=== PATIENT | female | born 1945 | race Hispanic/Latino ===

== ENCOUNTER → 2018-10-05 | Outpatient (CLI) | payer OTHER, MEDICARE | END | disposition home or self-care (01) | LOC: SHCH 09:00 | PROVIDERS: ATTEND Internal Medicine Cardiovascular Disease | DX: I35.1 Nonrheumatic aortic (valve) insufficiency (principal); I48.0 Paroxysmal atrial fibrillation | CPT/HCPCS: 93306 ==

== ENCOUNTER → 2018-10-09 | Outpatient (CLI) | payer OTHER, MEDICARE ==
[~2018-10-09] MED LIST: REGADENOSON 0.4 MG/5 ML PF SYG IVP SCH
== END | disposition home or self-care (01) ==
LOC: SHCH 07:54
PROVIDERS: ATTEND Internal Medicine Cardiovascular Disease
DX: Z01.818 Encounter for other preprocedural examination (principal); I35.0 Nonrheumatic aortic (valve) stenosis; I48.0 Paroxysmal atrial fibrillation
CPT/HCPCS: 78452; 93017; 96374; A9500 ×2; J2785

== ENCOUNTER → 2020-06-25 | Outpatient (CLI) | payer OTHER, MEDICARE | END | disposition home or self-care (01) | LOC: SHCH 12:51 | PROVIDERS: ATTEND Internal Medicine Cardiovascular Disease | DX: R00.2 Palpitations (principal); R00.0 Tachycardia, unspecified | CPT/HCPCS: 93306; 93356 ==

== ENCOUNTER → 2021-01-11 | Outpatient (CLI) | payer OTHER, MEDICARE ==
[~2021-01-11] VITALS: Ht 162.6 cm; Wt 83.0 kg
== END | disposition home or self-care (01) ==
LOC: SHCH 09:43
PROVIDERS: ATTEND Internal Medicine Cardiovascular Disease
DX: I35.0 Nonrheumatic aortic (valve) stenosis (principal); R07.89 Other chest pain; Z79.899 Other long term (current) drug therapy
CPT/HCPCS: 78452; 93017; 96374; A9500 ×2; J2785

== ENCOUNTER 2021-09-09 20:25 | Emergency (ER) | payer OTHER, MEDICARE ==
[~2021-09-09] VITALS: Ht 165.1 cm; Wt 79.4 kg
[2021-09-09 21:38] LABS: BASOPHILS % (AUTO) 0.6 % (0.0-5.0); EOSINOPHILS % (AUTO) 5.8 % (0.0-8.0); HEMATOCRIT 35.3 % (36-48); LYMPHOCYTES % (AUTO) 20.8 % (21.0-51.0); MEAN CORPUSCULAR HEMOGLOBIN 27.5 pg (27.0-33.0); MEAN CORPUSCULAR HGB CONC 31.2 g/dL (32.0-36.0); MEAN CORPUSCULAR VOLUME 88.3 fL (79-99); MONOCYTES % (AUTO) 9.4 % (3.0-13.0); PLATELET COUNT (AUTO) 399 K/uL (130-400); RED CELL DISTRIBUTION WIDTH 14.8 % (11.0-15.5); WHITE BLOOD COUNT (AUTO) 9.8 K/uL (4.8-10.8)
[2021-09-09 21:50] LABS: CREATININE 1.1 mg/dL (0.5-1.5); POTASSIUM 3.9 mmol/L (3.5-5.1)
[2021-09-09 21:52] LABS: ALBUMIN 3.6 g/dL (3.5-5.0); BILIRUBIN,TOTAL 0.4 mg/dL (0.2-1.0); TOTAL PROTEIN, SERUM 8.1 g/dL (6.0-8.3)
[2021-09-09] MEDS ORDERED: FUROSEMIDE 40MG VIAL IV ONE (22:00)
[2021-09-09 22:01] LABS: B-TYPE NATRIURETIC PEPTIDE 334 pg/mL (0-100)
[2021-09-09 22:38] VITALS: BP 161/53
== END 2021-09-09 22:52 | disposition home or self-care (01) ==
LOC: EDH 20:25
DX: I27.20 Pulmonary hypertension, unspecified (principal); E87.70 Fluid overload, unspecified; E11.9 Type 2 diabetes mellitus without complications; I25.10 Atherosclerotic heart disease of native coronary artery without angina pectoris; M19.90 Unspecified osteoarthritis, unspecified site; Z88.0 Allergy status to penicillin
CPT/HCPCS: 36415; 71045; 80053; 83880; 84484; 85025; 93005; 96374; 99285; J1940

== ENCOUNTER → 2021-10-12 | Outpatient (CLI) | payer OTHER, MEDICARE | END | disposition home or self-care (01) | LOC: SHCH 10:45 | PROVIDERS: ATTEND Internal Medicine Cardiovascular Disease | DX: I87.2 Venous insufficiency (chronic) (peripheral) (principal); R60.9 Edema, unspecified | CPT/HCPCS: 93970 ==

== ENCOUNTER 2021-12-09 06:35 | Day surgery (SDC) | payer OTHER, MEDICARE ==
[2021-12-03 16:07] LABS: BASOPHILS % (AUTO) 0.6 % (0.0-5.0); EOSINOPHILS % (AUTO) 0.8 % (0.0-8.0); HEMATOCRIT 37.6 % (36-48); LYMPHOCYTES % (AUTO) 19.4 % (21.0-51.0); MEAN CORPUSCULAR HEMOGLOBIN 26.5 pg (27.0-33.0); MEAN CORPUSCULAR HGB CONC 30.9 g/dL (32.0-36.0); MONOCYTES % (AUTO) 21.9 % (3.0-13.0); NEUTROPHILS % (AUTO) 57.3 % (40.0-77.0); PLATELET COUNT (AUTO) 234 K/uL (130-400); RED BLOOD CELL COUNT(AUTO) 4.37 MIL/uL (4.00-5.50); WHITE BLOOD COUNT (AUTO) 4.9 K/uL (4.8-10.8)
[2021-12-03 16:09] LABS: APPEARANCE,URINE Clear (CLEAR); BILIRUBIN,URINE Negative (NEGATIVE); COLOR,URINE Yellow (YELLOW); GLUCOSE, URINE (UA) Negative (NEGATIVE); KETONES,URINE Negative (NEGATIVE); LEUKOCYTE ESTERASE ,URINE Trace (NEGATIVE); NITRATE,URINE Negative (NEGATIVE); OCCULT BLOOD,URINE Negative (NEGATIVE); PROTEIN,URINE Negative (NEGATIVE); UROBILINOGEN,URINE 0.2 mg/dL (0.2-1.0)
[2021-12-03 16:22] LABS: INR 1.1 (0.85-1.15); PROTHROMBIN TIME 11.9 SEC (9.6-11.6)
[2021-12-03 16:23] LABS: PARTIAL THROMBOPLASTIN TIME 33.1 SEC (26.3-35.5)
[2021-12-03 16:24] LABS: CREATININE 1.2 mg/dL (0.5-1.5); POTASSIUM 4.3 mmol/L (3.5-5.1)
[2021-12-03 16:26] LABS: B-TYPE NATRIURETIC PEPTIDE 319 pg/mL (0-100)
[2021-12-03 16:28] LABS: BACTERIA,URINE Few /HPF (None Seen); RBC,URINE 0-1 /HPF (0-1)
[2021-12-03 16:29] LABS: SQUAMOUS EPITHELIAL CELL,UR Few /HPF (0-2)
[2021-12-07 09:52] VITALS: BP 185/65
[~2021-12-09] VITALS: Ht 165.1 cm; Wt 80.2 kg
[2021-12-09] VITALS (16 sets, daily range): BP systolic 138–162; BP diastolic 46–62
[~2021-12-09 06:35] MED LIST changes: +0.9%NACL 1000ML 1,000 ML IV SCH; +APIX5TAB PO; +DESMOPRESSIN 40MCG INJ 24 MCG in 0.9%NACL 50ML 50 ML IJ SCH; +DULO60CA64 PO; +FURO20TA4 PO; +HYDR-4153 PO; +METF-444 PO; +PYRI60TA PO; -REGADENOSON 0.4 MG/5 ML PF SYG IVP SCH; +SOTA80TA PO; +VALS320T16 PO
[2021-12-09] MEDS ORDERED: DESMOPRESSIN 40MCG INJ 24 MCG in 0.9%NACL 50ML 50 ML IJ SCH (07:30)
[2021-12-09] MEDS ORDERED: HEPARIN 10,000 UNIT/10ML (1,000 UNIT/ML) VIAL ONE (07:38)
[2021-12-09] MEDS ORDERED: IOHEXOL-350 50ML VIAL IV ONE (07:39)
[2021-12-09] MEDS ORDERED: NITROGLYCERIN 50MG VIAL ONE (07:39)
[2021-12-09] MEDS ORDERED: LIDOCAINE HCL 400MG/20ML VIAL ONE (07:39)
[2021-12-09] MEDS ORDERED: IOHEXOL-350 75 ML VIAL IV ONE (07:39)
[2021-12-09] MEDS ORDERED: 0.9%NACL 1000ML 1,000 ML IV ONE (08:13)
[2021-12-09] MEDS ORDERED: DEXTROSE 50%-WATER 50 ML DISP.SYRIN IV PRN (11:00)
[2021-12-09] MEDS ORDERED: GLUCAGON 1MG KIT 1 MG ML IM PRN (11:00)
[2021-12-09] MEDS ORDERED: INSULIN HUMULIN R 100 UNIT/ML 3ML SQ SCH (11:30)
[2021-12-09 12:23] LABS: ABG BASE EXCESS 0.1 mmol/L (-2.0-3.0); ABG HCO3 25.2 mmol/L (21.0-28.0); ABG OXYGEN SATURATION 95.6 % (95.0-99.0); ABG PCO2 43 mmHg (32-45)
== END 2021-12-09 18:12 | disposition home or self-care (01) ==
LOC: DAH 06:35
PROVIDERS: ATTEND Internal Medicine Cardiovascular Disease
DX: I25.119 Atherosclerotic heart disease of native coronary artery with unspecified angina pectoris (principal); I34.0 Nonrheumatic mitral (valve) insufficiency; I27.23 Pulmonary hypertension due to lung diseases and hypoxia; I11.0 Hypertensive heart disease with heart failure; I50.22 Chronic systolic (congestive) heart failure; I48.0 Paroxysmal atrial fibrillation; E03.9 Hypothyroidism, unspecified; J45.909 Unspecified asthma, uncomplicated; E78.5 Hyperlipidemia, unspecified; E11.9 Type 2 diabetes mellitus without complications; Z79.899 Other long term (current) drug therapy; Z79.84 Long term (current) use of oral hypoglycemic drugs; Z79.890 Hormone replacement therapy; Z79.01 Long term (current) use of anticoagulants; Z90.49 Acquired absence of other specified parts of digestive tract; Z90.710 Acquired absence of both cervix and uterus; Z98.890 Other specified postprocedural states; Z80.9 Family history of malignant neoplasm, unspecified; Z82.3 Family history of stroke; Z83.3 Family history of diabetes mellitus; Z82.49 Family history of ischemic heart disease and other diseases of the circulatory system; Z88.0 Allergy status to penicillin
CPT/HCPCS: 36415; 36600; 71045; 80048; 81001; 82803; 82948 ×2; 83880; 85025; 85610; 85730; 93005; 93460; A4215; A4216; A4221; A4222; A4223 ×3; A4606; A4663; C1769; C1894 ×3; J1644 ×2; J2597; J3490; J7030; Q9967 ×2; 94760

== ENCOUNTER 2021-12-15 13:57 | Observation (INO) | payer OTHER, MEDICARE ==
[~2021-12-15] VITALS: Ht 165.1 cm; Wt 77.2 kg
[~2021-12-15 13:57] MED LIST changes: -CETI10TA57 PO; -HYDR25TA PO; -NAPR500T6 PO
[2021-12-15 14:52] LABS: BASOPHILS % (AUTO) 0.1 % (0.0-5.0); EOSINOPHILS % (AUTO) 2.6 % (0.0-8.0); HEMATOCRIT 32.3 % (36-48); LYMPHOCYTES % (AUTO) 26.8 % (21.0-51.0); MEAN CORPUSCULAR HEMOGLOBIN 26.8 pg (27.0-33.0); MEAN CORPUSCULAR HGB CONC 32.2 g/dL (32.0-36.0); MEAN CORPUSCULAR VOLUME 83.2 fL (79-99); MONOCYTES % (AUTO) 13.2 % (3.0-13.0); NEUTROPHILS % (AUTO) 56.9 % (40.0-77.0); PLATELET COUNT (AUTO) 302 K/uL (130-400); RED BLOOD CELL COUNT(AUTO) 3.88 MIL/uL (4.00-5.50); RED CELL DISTRIBUTION WIDTH 15.1 % (11.0-15.5)
[2021-12-15] MEDS ORDERED: HYDR25TA PO (14:59)
[2021-12-15] MEDS ORDERED: METF-444 PO (14:59)
[2021-12-15] MEDS ORDERED: PYRI60TA PO (14:59)
[2021-12-15] MEDS ORDERED: NAPR500T6 PO (14:59)
[2021-12-15] MEDS ORDERED: CETI10TA57 PO (14:59)
[2021-12-15 15:05] LABS: CREATININE 1.1 mg/dL (0.5-1.5)
[2021-12-15 15:07] LABS: INR 1.04 (0.85-1.15); PROTHROMBIN TIME 11.3 SEC (9.6-11.6)
[2021-12-15 15:09] LABS: PARTIAL THROMBOPLASTIN TIME 30.2 SEC (26.3-35.5)
[2021-12-15 15:10] LABS: ALBUMIN 3.2 g/dL (3.5-5.0); BILIRUBIN,TOTAL 0.7 mg/dL (0.2-1.0); TOTAL PROTEIN, SERUM 7.2 g/dL (6.0-8.3)
[2021-12-15] MEDS ORDERED: MORPHINE 2 MG SYG IVP ONE (16:30)
[2021-12-15] MEDS ORDERED: ONDANSETRON 4MG INJ IVP ONE (16:30)
[2021-12-15 16:49] LABS: APPEARANCE,URINE Clear (CLEAR); BILIRUBIN,URINE Negative (NEGATIVE); COLOR,URINE Yellow (YELLOW); GLUCOSE, URINE (UA) Negative (NEGATIVE); KETONES,URINE Negative (NEGATIVE); LEUKOCYTE ESTERASE ,URINE Trace (NEGATIVE); NITRATE,URINE Negative (NEGATIVE); OCCULT BLOOD,URINE Negative (NEGATIVE); PH,URINE 5.5 (5.0-8.0); PROTEIN,URINE Negative (NEGATIVE); UROBILINOGEN,URINE 0.2 mg/dL (0.2-1.0)
[2021-12-15 16:58] LABS: BACTERIA,URINE Rare /HPF (None Seen); RBC,URINE 0-1 /HPF (0-1); SQUAMOUS EPITHELIAL CELL,UR Rare /HPF (0-2); TRANSITIONAL EPI CELLS,URINE Rare /HPF (None Seen); WBC,URINE 0-1 /HPF (0-1)
[2021-12-15] MEDS ORDERED: ONDANSETRON 4MG INJ IVP PRN (17:00)
[2021-12-15] MEDS ORDERED: CLONIDINE HCL 0.1 MG TABLET PO PRN (17:00)
[2021-12-15] MEDS ORDERED: ACETAMINOPHEN 650 MG SUPPOSITORY RC PRN (17:00)
[2021-12-15] MEDS ORDERED: ACETAMINOPHEN 325 MG TAB PO PRN (17:00)
[2021-12-15] MEDS ORDERED: LACTULOSE 20 GM/30 ML UDCUP PO PRN (17:00)
[2021-12-15] MEDS: LACTATED RINGERS 1000ML 1,000 ML IV SCH (19:28)
[2021-12-15 20:10] VITALS: BP 151/62
[2021-12-15] MEDS: TRAMADOL HCL 50 MG TABLET PO PRN (20:46)
[2021-12-16] VITALS (16 sets, daily range): BP systolic 103–153; BP diastolic 34–69
[2021-12-16 04:38] LABS: BASOPHILS % (AUTO) 0.4 % (0.0-5.0); EOSINOPHILS % (AUTO) 3.4 % (0.0-8.0); HEMATOCRIT 29.7 % (36-48); LYMPHOCYTES % (AUTO) 31.7 % (21.0-51.0); MEAN CORPUSCULAR HEMOGLOBIN 27.1 pg (27.0-33.0); MEAN CORPUSCULAR VOLUME 84.9 fL (79-99); MONOCYTES % (AUTO) 13.5 % (3.0-13.0); NEUTROPHILS % (AUTO) 50.6 % (40.0-77.0); PLATELET COUNT (AUTO) 293 K/uL (130-400); RED CELL DISTRIBUTION WIDTH 15.1 % (11.0-15.5); WHITE BLOOD COUNT (AUTO) 5.3 K/uL (4.8-10.8)
[2021-12-16 04:56] LABS: CREATININE 1.2 mg/dL (0.5-1.5); MAGNESIUM 1.7 mg/dL (1.80-2.40); PHOSPHORUS 4.3 mg/dL (2.5-4.9); POTASSIUM 4.2 mmol/L (3.5-5.1)
[2021-12-16] MEDS: LACTATED RINGERS 1000ML 1,000 ML IV SCH ×3 (05:25→19:56)
[2021-12-16] MEDS: INSULIN HUMULIN R 100 UNIT/ML 3ML SQ SCH ×4 (06:39→19:55)
[2021-12-16] MEDS ORDERED: NAPROXEN 500 MG TABLET PO PRN (07:30)
[2021-12-16] MEDS ORDERED: THROMBIN-JMI 5000 UNIT/VIAL TP ONE (08:27)
[2021-12-16] MEDS ORDERED: FUROSEMIDE 20 MG TABLET PO PRN (08:30)
[2021-12-16] MEDS ORDERED: DEXTROSE 50%-WATER 50 ML DISP.SYRIN IV PRN (08:30)
[2021-12-16] MEDS ORDERED: FENTANYL CITRATE PF 50 MCG/1 ML 2ML VIAL ONE (08:30)
[2021-12-16] MEDS ORDERED: POTASSIUM CHLORIDE 10% ELIXIR 20 MEQ/15 ML UDCUP PO PRN (08:30)
[2021-12-16] MEDS ORDERED: TRAMADOL HCL 50 MG TABLET PO PRN (08:30)
[2021-12-16] MEDS ORDERED: POTASSIUM CHLORIDE 20MEQ/100ML 100 ML IV PRN ×2 (08:30)
[2021-12-16] MEDS ORDERED: LIDOCAINE HCL MPF 1% 5ML VIAL IV PRN (08:30)
[2021-12-16] MEDS ORDERED: KCL 20 MEQ ERTAB PO PRN (08:30)
[2021-12-16] MEDS ORDERED: MIDAZOLAM HCL 1 MG/ML 2ML VIAL ONE (08:30)
[2021-12-16] MEDS ORDERED: GLUCAGON 1MG KIT 1 MG ML IM PRN (08:30)
[2021-12-16] MEDS ORDERED: LIDOCAINE HCL-MPF 1% 2ML VIAL IV PRN (08:30)
[2021-12-16] MEDS ORDERED: MAGNESIUM 2GM PREMIX 50ML 50 ML IV PRN (08:30)
[2021-12-16] MEDS: HYDROCHLOROTHIAZIDE 25 MG TABLET PO SCH (09:00)
[2021-12-16] MEDS: SOTALOL HCL 80 MG TABLET PO SCH ×2 (09:00→21:27)
[2021-12-16] MEDS: PANTOPRAZOLE 40 MG TAB DR PO SCH (10:45)
[2021-12-16] MEDS: CETIRIZINE HCL 5 MG TABLET PO SCH (10:45)
[2021-12-16] MEDS: METFORMIN HCL 500 MG TABLET PO SCH (10:50)
[2021-12-16] MEDS: PYRIDOSTIGMINE BROMIDE 60 MG TABLET PO SCH ×4 (10:50→19:55)
[2021-12-16] MEDS: TRAMADOL HCL 50 MG TABLET PO PRN ×2 (10:51→19:56)
[2021-12-16] MEDS: MORPHINE 2 MG SYG IVP PRN ×2 (13:44→23:36)
[2021-12-17 03:56] VITALS: BP 128/52
[2021-12-17 05:40] LABS: HEMATOCRIT 32.1 % (36-48); MEAN CORPUSCULAR HEMOGLOBIN 26.6 pg (27.0-33.0); MEAN CORPUSCULAR HGB CONC 30.8 g/dL (32.0-36.0); MEAN CORPUSCULAR VOLUME 86.3 fL (79-99); PLATELET COUNT (AUTO) 292 K/uL (130-400); RED BLOOD CELL COUNT(AUTO) 3.72 MIL/uL (4.00-5.50); WHITE BLOOD COUNT (AUTO) 4.4 K/uL (4.8-10.8)
[2021-12-17] MEDS: INSULIN HUMULIN R 100 UNIT/ML 3ML SQ SCH ×3 (05:49→16:30)
[2021-12-17 05:51] LABS: INR 0.99 (0.85-1.15); PROTHROMBIN TIME 10.8 SEC (9.6-11.6)
[2021-12-17 05:53] LABS: PARTIAL THROMBOPLASTIN TIME 29.3 SEC (26.3-35.5)
[2021-12-17 06:06] LABS: CREATININE 1.1 mg/dL (0.5-1.5); MAGNESIUM 2.2 mg/dL (1.80-2.40); POTASSIUM 4.7 mmol/L (3.5-5.1)
[2021-12-17] MEDS: LACTATED RINGERS 1000ML 1,000 ML IV SCH ×2 (06:14→12:25)
[2021-12-17 07:25] VITALS: BP 148/46
[2021-12-17] MEDS: METFORMIN HCL 500 MG TABLET PO SCH (08:00)
[2021-12-17] MEDS: PANTOPRAZOLE 40 MG TAB DR PO SCH (09:00)
[2021-12-17] MEDS: SOTALOL HCL 80 MG TABLET PO SCH (09:00)
[2021-12-17] MEDS: CETIRIZINE HCL 5 MG TABLET PO SCH (09:00)
[2021-12-17] MEDS: HYDROCHLOROTHIAZIDE 25 MG TABLET PO SCH (09:00)
[2021-12-17] MEDS: PYRIDOSTIGMINE BROMIDE 60 MG TABLET PO SCH ×2 (09:00→12:27)
[2021-12-17 12:07] VITALS: BP 144/52
[2021-12-17 15:20] VITALS: BP 173/46
== END 2021-12-17 17:50 | disposition home or self-care (01) ==
LOC: EDH 13:57 → EDHIP 17:00 → 3DH 19:37
PROVIDERS: ADMIT Internal Medicine Critical Care Medicine; ATTEND Internal Medicine Critical Care Medicine
DX: U07.1 COVID-19 (principal); I72.4 Aneurysm of artery of lower extremity; D62 Acute posthemorrhagic anemia; M79.81 Nontraumatic hematoma of soft tissue; G70.00 Myasthenia gravis without (acute) exacerbation; E11.9 Type 2 diabetes mellitus without complications; I10 Essential (primary) hypertension; I25.10 Atherosclerotic heart disease of native coronary artery without angina pectoris; E66.3 Overweight; Z88.0 Allergy status to penicillin; Z79.899 Other long term (current) drug therapy; Z90.710 Acquired absence of both cervix and uterus; Z79.01 Long term (current) use of anticoagulants
CPT/HCPCS: 36002; 36415 ×3; 76882 ×3; 76936; 76942; 80048 ×2; 80053; 81001; 82948 ×8; 83735 ×2; 84100; 85018; 85025 ×2; 85027; 85610 ×2; 85730 ×2; 86850; 86900; 86901; 86923; 87635; 93005; 96361 ×3; 96365; 96366; 96375; 96376; 97161; 99284; G0378 ×49; J2250; J2405; J3010; J3475; J3490; J7120 ×5

== ENCOUNTER → 2021-12-15 | Outpatient (CLI) | payer OTHER, MEDICARE ==
[~2021-12-15] MED LIST changes: -0.9%NACL 1000ML 1,000 ML IV SCH; +CETI10TA57 PO; -DESMOPRESSIN 40MCG INJ 24 MCG in 0.9%NACL 50ML 50 ML IJ SCH; +HYDR25TA PO; +NAPR500T6 PO
== END | disposition home or self-care (01) ==
LOC: RAH 13:05
PROVIDERS: ATTEND Internal Medicine Cardiovascular Disease
DX: I72.4 Aneurysm of artery of lower extremity (principal); M79.81 Nontraumatic hematoma of soft tissue
CPT/HCPCS: 76882

== ENCOUNTER → 2021-12-20 | Outpatient (CLI) | payer OTHER, MEDICARE ==
[~2021-12-20] MED LIST changes: -APIX5TAB PO; +CETI10TA57 PO; -DULO60CA64 PO; +HYDR25TA PO; -METF-444 PO
== END | disposition home or self-care (01) ==
LOC: RAH 13:04
PROVIDERS: ATTEND Internal Medicine Cardiovascular Disease
DX: I72.4 Aneurysm of artery of lower extremity (principal)
CPT/HCPCS: 76882

== ENCOUNTER → 2022-06-06 | Outpatient (CLI) | payer OTHER, MEDICARE | END | disposition home or self-care (01) | LOC: RAH 11:37 | PROVIDERS: ATTEND Family Medicine | DX: M19.071 Primary osteoarthritis, right ankle and foot (principal); M25.474 Effusion, right foot; M77.31 Calcaneal spur, right foot | CPT/HCPCS: 73630 ==

== ENCOUNTER → 2023-08-14 | Outpatient (CLI) | payer OTHER, MEDICARE ==
[~2023-08-14] MED LIST changes: -HYDR-4153 PO; +HYDR25TA67 PO
== END | disposition home or self-care (01) ==
LOC: RAH 12:23
PROVIDERS: ATTEND Family Medicine
DX: R06.02 Shortness of breath (principal); E03.9 Hypothyroidism, unspecified; I13.0 Hypertensive heart and chronic kidney disease with heart failure and stage 1 through stage 4 chronic kidney disease, or unspecified chronic kidney disease; E11.69 Type 2 diabetes mellitus with other specified complication; N18.9 Chronic kidney disease, unspecified; W19.XXXA Unspecified fall, initial encounter; Y92.89 Other specified places as the place of occurrence of the external cause; Y93.89 Activity, other specified; Y99.8 Other external cause status
CPT/HCPCS: 71100

== ENCOUNTER → 2023-09-16 | Outpatient (CLI) | payer OTHER, MEDICARE ==
[~2023-09-16] MED LIST changes: +APIX5TAB PO; +DULO60CA64 PO; +LEVO50CA4 PO; +METF-444 PO; +OMEP40CA21 PO
== END | disposition home or self-care (01) ==
LOC: SHCH 12:53
PROVIDERS: ATTEND Internal Medicine Cardiovascular Disease
DX: I35.0 Nonrheumatic aortic (valve) stenosis (principal)
CPT/HCPCS: 93306

== ENCOUNTER 2023-09-26 08:00 | Day surgery (SDC) | payer OTHER, MEDICARE ==
[~2023-09-26] VITALS: Ht 167.6 cm; Wt 79.8 kg
[2023-09-26] VITALS (16 sets, daily range): BP systolic 129–166; BP diastolic 46–70; PULSE 55–71; RESP 14–18
[~2023-09-26 08:00] MED LIST changes: -CETI10TA57 PO; -FURO20TA4 PO; -HYDR25TA67 PO
[2023-09-26] MEDS: 0.9%NACL 1000ML 1,000 ML IV ONE (09:12)
[2023-09-26] MEDS ORDERED: PROPOFOL 10 MG/ML 20ML VIAL IV ONE ×2 (09:39→10:07)
[2023-09-26] MEDS: IPRATROPIUM/ALBUTEROL SULFATE 3 ML SOLUTION IH ONE (10:52)
[2023-09-26] MEDS ORDERED: IPRATROPIUM/ALBUTEROL SULFATE 3 ML SOLUTION IH ONE (11:00)
== END 2023-09-26 11:51 | disposition home or self-care (01) ==
LOC: DAH 08:00 → ENDO 08:00
PROVIDERS: ATTEND Internal Medicine Gastroenterology
DX: R19.5 Other fecal abnormalities (principal); K57.30 Diverticulosis of large intestine without perforation or abscess without bleeding; R19.7 Diarrhea, unspecified; R10.13 Epigastric pain; K21.00 Gastro-esophageal reflux disease with esophagitis, without bleeding; K44.9 Diaphragmatic hernia without obstruction or gangrene; K29.70 Gastritis, unspecified, without bleeding; K76.0 Fatty (change of) liver, not elsewhere classified; I10 Essential (primary) hypertension; E11.9 Type 2 diabetes mellitus without complications; J45.909 Unspecified asthma, uncomplicated; F41.9 Anxiety disorder, unspecified; I25.10 Atherosclerotic heart disease of native coronary artery without angina pectoris; F32.A Depression, unspecified; E03.9 Hypothyroidism, unspecified; E78.5 Hyperlipidemia, unspecified; M19.90 Unspecified osteoarthritis, unspecified site; M81.0 Age-related osteoporosis without current pathological fracture; Z86.010 Personal history of colon polyps; Z88.0 Allergy status to penicillin; Z79.84 Long term (current) use of oral hypoglycemic drugs; Z79.899 Other long term (current) drug therapy; Z79.01 Long term (current) use of anticoagulants; Z79.890 Hormone replacement therapy; Z90.710 Acquired absence of both cervix and uterus; Z90.49 Acquired absence of other specified parts of digestive tract; Z98.890 Other specified postprocedural states; Z98.49 Cataract extraction status, unspecified eye
CPT/HCPCS: 82948 ×2; 45378; 94640; J7030 ×2; J2704 ×2; A4620; A4215; A4223; A7002; A4222; A4221; A4663; A4606; J3490

== ENCOUNTER → 2024-10-23 | Outpatient (CLI) | payer OTHER, MEDICARE ==
[~2024-10-23] MED LIST changes: -LEVO50CA4 PO; +LEVO50CA5 PO
--- NOTE | 2024-10-23 11:09 | HMCIMG ---
Calcaneus 2 views Clinical Information: Pain in right ankle and joints of right foot Comparison: None Findings: Routine views of the calcaneus reveal no evidence of acute fracture or dislocation. There is evidence of small calcaneal spur. The soft tissues are preserved. IMPRESSION: Small calcaneal spur.
== END | disposition home or self-care (01) ==
LOC: RAH 09:49
PROVIDERS: ATTEND Family Medicine
DX: M77.31 Calcaneal spur, right foot (principal); M25.571 Pain in right ankle and joints of right foot
CPT/HCPCS: 73650

== ENCOUNTER → 2024-12-25 | Outpatient (CLI) | payer OTHER, MEDICAID ==
[2024-12-25] MEDS: REGADENOSON 0.4 MG/5 ML PF SYG IVP ONE (09:40)
== END | disposition home or self-care (01) ==
LOC: SHCH 08:38
PROVIDERS: ATTEND Internal Medicine Cardiovascular Disease
DX: I20.9 Angina pectoris, unspecified (principal); R06.00 Dyspnea, unspecified
CPT/HCPCS: 78452; 93017; J2785; A9500 ×2